=== PATIENT | male | born 1965 | race Two or more races ===

== ENCOUNTER 2023-03-28 18:19 | Inpatient (IN) | payer OTHER ==
[~2023-03-28] VITALS: Ht 165.1 cm; Wt 97.2 kg
[2023-03-28 19:34] LABS: Basophils # (auto) 0 10 ^3/uL (0-0.2); Eosinophils # (auto) 0.1 10 ^3/uL (0-0.8); Eosinophils % (auto) 1.8 % (0.0-7.0); Hematocrit 41.3 % (41.0-53.0); Hemoglobin 13.7 g/dL (13.5-17.5); Lymphocytes # (auto) 1.4 10 ^3/uL (0.4-5.4); Lymphocytes % (auto) 40.7 % (10.0-50.0); Mean Corpuscular Hgb Conc. 33.3 g/dL (32.0-36.0); Mean Corpuscular Volume 84.2 fL (80.0-100.0); Monocytes # (auto) 0.2 10 ^3/uL (0-1.3); Monocytes % (auto) 6.3 % (0.0-12.0); Neutrophils # (auto) 1.7 10 ^3/uL (1.6-8.6); Neutrophils % (auto) 50.2 % (37.0-80.0); Nucleated Red Blood Cells % 0.6 %; Red Blood Cells 4.91 10^6/uL (4.5-5.90); Red Cell Distribution Width 14.5 % (11.8-14.3); White Blood Cell 3.5 10^3/uL (4.4-10.8)
[2023-03-28 19:51] LABS: Alanine Aminotransferase 17 U/L (7-40); Albumin 4.2 g/dL (3.2-4.8); Alkaline Phosphatase 110 U/L (46-116); Aspartate Aminotransferase 17 U/L (13-40); Bilirubin, Total 0.5 mg/dL (0.2-1.0); CRP High Sensitivity 0.13 mg/dL (<1.0); Calcium 9.2 mg/dL (8.5-10.1); Chloride 109 mmol/L (98-107); Glucose 90 mg/dL (74-106); Sodium 142 mmol/L (136-145); Total Protein 7.3 g/dL (5.7-8.2)
[2023-03-28 20:11] LABS: Anion Gap 7 (5-15); BUN/Creatinine Ratio 12.3 (10.0-20.0); Blood Urea Nitrogen 13 mg/dL (9-23); Carbon Dioxide 26 mmol/L (20-30)
[2023-03-28 20:30] LABS: Erythrocyte Sedimentation Rate 8 mm/hr (0-20)
[2023-03-29] MEDS ORDERED: ONDANSETRON HCL 4 MG/2 ML VIAL IV PRN (02:30)
[2023-03-29] MEDS ORDERED: HYDROmorphone HCL 2 MG/ML VL/or syr IV PRN (02:30)
[2023-03-29] MEDS: PIPERACILLIN-TAZOB 3.375GM 100 ML IV SCH ×3 (05:43→22:01)
[2023-03-29] MEDS: HYDROcodone-ACET 5/325MG TAB PO PRN ×2 (06:21→13:55)
[2023-03-29 09:00] VITALS: RESP 16; O2SAT 95
[2023-03-29] MEDS: PANTOPRAZOLE 40 MG/10 ML VIAL INJ IV SCH ×2 (09:11→21:59)
[2023-03-29 23:06] LABS: INR 1.04 (0.9-1.15); Prothrombin Time 10.9 sec (9.3-11.8)
[2023-03-30] MEDS: HYDROcodone-ACET 5/325MG TAB PO PRN ×2 (06:48→22:17)
[2023-03-30] MEDS: PIPERACILLIN-TAZOB 3.375GM 100 ML IV SCH ×3 (06:59→21:53)
[2023-03-30] MEDS: PANTOPRAZOLE 40 MG/10 ML VIAL INJ IV SCH ×2 (10:36→21:53)
[2023-03-30] MEDS ORDERED: BUPIVACAINE HCL 50 ML ONE (16:12)
[2023-03-30] MEDS ORDERED: LIDOCAINE 1% HCL (LOCAL ANESTH.) INJ 20ML MDV ONE (16:12)
[2023-03-30 17:03] VITALS: O2SAT 100
[2023-03-30] MEDS ORDERED: ATOR20TA50 PO (18:33)
[2023-03-30] MEDS ORDERED: CHOL20007 OR (18:34)
[2023-03-30] MEDS ORDERED: MELO-335 PO (18:35)
[2023-03-30] MEDS ORDERED: HYDR25TA4 PO (18:35)
[2023-03-30] MEDS ORDERED: TERA10CA36 PO (18:36)
[2023-03-30] MEDS ORDERED: MAGN400S25 PO (18:44)
[2023-03-30 21:49] VITALS: BP 143/81; PULSE 92; RESP 18; O2SAT 99
[2023-03-30 22:00] VITALS: BP 129/76; PULSE 62; RESP 20; TEMP 98.5; O2SAT 97
[2023-03-31 05:00] VITALS: BP 122/80; PULSE 61; RESP 18; TEMP 98.2; O2SAT 96
[2023-03-31] MEDS: PIPERACILLIN-TAZOB 3.375GM 100 ML IV SCH ×3 (06:01→21:00)
[2023-03-31] MEDS: HYDROcodone-ACET 5/325MG TAB PO PRN (06:05)
[2023-03-31] MEDS: PANTOPRAZOLE 40 MG/10 ML VIAL INJ IV SCH ×2 (08:49→21:00)
[2023-03-31 09:00] VITALS: BP 117/73; PULSE 51; RESP 20; TEMP 98.2; O2SAT 100
[2023-03-31 13:00] VITALS: BP 112/61; PULSE 60; RESP 18; TEMP 97.4; O2SAT 95
[2023-03-31] MEDS ORDERED: NAPROXEN 500 MG TAB PO PRN (16:15)
[2023-03-31 16:55] VITALS: BP 127/73; PULSE 74; RESP 18; TEMP 98.8; O2SAT 98
[2023-03-31] MEDS: HYDROcodone-ACET 10/325MG TAB PO PRN ×2 (17:40→22:24)
[2023-03-31 20:00] VITALS: PULSE 75; RESP 18
[2023-04-01] VITALS (7 sets, daily range): BP systolic 124–144; BP diastolic 62–82; PULSE 59–75; RESP 16–20; TEMP 97.5–98.6; O2SAT 94–99
[2023-04-01] MEDS: PIPERACILLIN-TAZOB 3.375GM 100 ML IV SCH ×3 (06:02→21:18)
[2023-04-01] MEDS: HYDROcodone-ACET 10/325MG TAB PO PRN ×2 (06:08→21:18)
[2023-04-01] MEDS: PANTOPRAZOLE 40 MG/10 ML VIAL INJ IV SCH ×2 (09:49→21:18)
[2023-04-01] MEDS: ENOXAPARIN SOD 40 MG/0.4 ML SYRINGE SC SCH ×2 (09:49→09:53)
[2023-04-02] VITALS (7 sets, daily range): BP systolic 96–140; BP diastolic 57–89; PULSE 58–78; RESP 16–20; TEMP 97.5–99.1; O2SAT 97–99
[2023-04-02] MEDS: PIPERACILLIN-TAZOB 3.375GM 100 ML IV SCH ×3 (06:17→21:17)
[2023-04-02] MEDS: HYDROcodone-ACET 10/325MG TAB PO PRN ×2 (06:21→21:46)
[2023-04-02] MEDS ORDERED: VANCOMYCIN PER PHARMACY 0 MG IV SCH (09:30)
[2023-04-02] MEDS ORDERED: VANCOMYCIN 1GM/250ML 250 ML IV ONE (09:45)
[2023-04-02 10:41] LABS: Basophils # (auto) 0 10 ^3/uL (0-0.2); Basophils % (auto) 0.6 % (0.0-2.0); Eosinophils # (auto) 0.2 10 ^3/uL (0-0.8); Eosinophils % (auto) 4.7 % (0.0-7.0); Hematocrit 39.7 % (41.0-53.0); Hemoglobin 12.9 g/dL (13.5-17.5); Lymphocytes % (auto) 50.1 % (10.0-50.0); Mean Corpuscular Hemoglobin 27.5 pg (28.0-32.0); Mean Corpuscular Hgb Conc. 32.6 g/dL (32.0-36.0); Mean Corpuscular Volume 84.4 fL (80.0-100.0); Monocytes # (auto) 0.4 10 ^3/uL (0-1.3); Neutrophils # (auto) 1.4 10 ^3/uL (1.6-8.6); Neutrophils % (auto) 34.6 % (37.0-80.0); Nucleated Red Blood Cells % 0.1 %; Red Cell Distribution Width 14.4 % (11.8-14.3)
[2023-04-02 10:51] LABS: Potassium 3.9 mmol/L (3.5-5.1)
[2023-04-02 10:52] LABS: Calcium 9.2 mg/dL (8.5-10.1)
[2023-04-02 10:57] LABS: BUN/Creatinine Ratio 9.7 (10.0-20.0)
[2023-04-02 10:58] LABS: Albumin 4.1 g/dL (3.2-4.8)
[2023-04-02 10:59] LABS: Phosphorus 3.5 mg/dL (2.4-5.1)
[2023-04-02] MEDS: PANTOPRAZOLE 40 MG/10 ML VIAL INJ IV SCH ×2 (11:03→21:17)
[2023-04-02] MEDS: ENOXAPARIN SOD 40 MG/0.4 ML SYRINGE SC SCH (11:03)
[2023-04-02] MEDS: VANCOMYCIN 1GM/250ML 250 ML IV SCH (22:25)
[2023-04-03] VITALS (7 sets, daily range): BP systolic 112–145; BP diastolic 63–84; PULSE 46–72; RESP 16–20; TEMP 97.6–98.9; O2SAT 96–99
[2023-04-03] MEDS: PIPERACILLIN-TAZOB 3.375GM 100 ML IV SCH ×3 (05:04→21:24)
[2023-04-03] MEDS: HYDROcodone-ACET 10/325MG TAB PO PRN ×3 (05:11→22:55)
[2023-04-03] MEDS: PANTOPRAZOLE 40 MG/10 ML VIAL INJ IV SCH ×2 (10:00→21:25)
[2023-04-03] MEDS: ENOXAPARIN SOD 40 MG/0.4 ML SYRINGE SC SCH (10:00)
[2023-04-03] MEDS: VANCOMYCIN 1GM/250ML 250 ML IV SCH ×2 (10:19→22:57)
[2023-04-04] VITALS (7 sets, daily range): BP systolic 119–145; BP diastolic 66–84; PULSE 54–76; RESP 16–18; TEMP 97.5–98.3; O2SAT 96–99
[2023-04-04] MEDS: PIPERACILLIN-TAZOB 3.375GM 100 ML IV SCH ×3 (05:06→21:16)
[2023-04-04] MEDS: HYDROcodone-ACET 10/325MG TAB PO PRN ×2 (07:28→21:26)
[2023-04-04] MEDS: ENOXAPARIN SOD 40 MG/0.4 ML SYRINGE SC SCH (11:15)
[2023-04-04] MEDS: PANTOPRAZOLE 40 MG/10 ML VIAL INJ IV SCH ×2 (11:15→21:16)
[2023-04-04] MEDS: VANCOMYCIN 1GM/250ML 250 ML IV SCH ×2 (11:27→22:21)
[2023-04-05 05:00] VITALS: BP 134/90; PULSE 72; RESP 18; TEMP 98.3; O2SAT 96
[2023-04-05] MEDS: PIPERACILLIN-TAZOB 3.375GM 100 ML IV SCH (05:12)
[2023-04-05 08:04] VITALS: PULSE 72; RESP 18
[2023-04-05 09:19] VITALS: BP 133/82; PULSE 71; RESP 20; TEMP 97.3; O2SAT 96
[2023-04-05] MEDS: VANCOMYCIN 1GM/250ML 250 ML IV SCH (10:35)
[2023-04-05] MEDS: ENOXAPARIN SOD 40 MG/0.4 ML SYRINGE SC SCH (10:35)
[2023-04-05] MEDS: PANTOPRAZOLE 40 MG/10 ML VIAL INJ IV SCH (10:35)
[2023-04-05] MEDS: HYDROcodone-ACET 10/325MG TAB PO PRN (10:35)
[2023-04-05] MEDS ORDERED: AUG875T PO (12:00)
[2023-04-05 12:31] VITALS: BP 126/83; PULSE 81; RESP 20; TEMP 97.4; O2SAT 98
== END 2023-04-05 14:10 | DRG 982 ==
LOC: ER 18:19 → EEVIPCON 18:19 → OVERFLOW 03-29 02:43 → EAST 03-30 17:20
PROVIDERS: ADMIT Specialist; ATTEND Internal Medicine
PROC: 3E0T3BZ Introduction of Anesthetic Agent into Peripheral Nerves and Plexi, Percutaneous Approach (ICD-10-PCS; 2023-03-30)
PROC: 0LB80ZZ Excision of Left Hand Tendon, Open Approach (ICD-10-PCS; principal; 2023-03-30 16:42)
DX: L03.012 Cellulitis of left finger (principal); L02.511 Cutaneous abscess of right hand; L02.512 Cutaneous abscess of left hand; S61.205A Unspecified open wound of left ring finger without damage to nail, initial encounter; W50.3XXA Accidental bite by another person, initial encounter; I10 Essential (primary) hypertension; Y93.89 Activity, other specified; Y92.89 Other specified places as the place of occurrence of the external cause; Y99.8 Other external cause status
CPT/HCPCS: 36415; 71045; 73140; 73218; 80053; 80069; 80202; 83605; 85025; 85610; 85652; 86141; 87040; 87070; 87075; 87076; 87077; 87205; C9113; G0378; J2001; J2405; J2543; J3490